=== PATIENT | female | born 1950 | race Caucasian/White ===

== ENCOUNTER 2019-07-23 11:44 | Observation (INO) ==
[2019-07-23 10:38] LABS: CREATININE 0.8 mg/dL (0.5-0.9)
[2019-07-23] MEDS ORDERED: EPINEPHRINE IM ONE (11:52)
--- NOTE | 2019-07-23 12:09 | Diag Imaging Result Doc PS360 ---
EXAM: CT ABD/PELVIS W/PO AND IV CON 07/23/2019 HISTORY: R19.00, , , , , TECHNIQUE: This exam was performed using automated exposure control, adjustment of mA or kV according to patient size, and/or use of iterative reconstruction technique. COMMENT: There are platelike opacities in the lingula and left lower lobe. There is also some apparent atelectasis over the hemidiaphragm on the right. There is an apparent cyst in the dome of the right lobe of the liver. The adrenal glands and spleen are not enlarged. The pancreas is unremarkable. There is fullness of both renal pelves. No evidence of stones is present. The aorta is not distended. There is no evidence of significant adenopathy. There is oral contrast throughout the colon. The small bowel is not distended. Pelvis: The appendix is normal in appearance. There is diverticulosis in the sigmoid colon without evidence of active diverticulitis. The urinary bladder is slightly distended. There has been hysterectomy. No free fluid is present. There is no evidence of significant adenopathy or masses. There are postsurgical changes in the lumbar spine. No acute bony abnormalities are demonstrated. IMPRESSION: Bibasilar atelectasis. No evidence of acute intra-abdominal disease. The possibility of mild urinary retention cannot be excluded. Electronically signed by Devante Egan 07/23/2019 12:07 PM
[2019-07-23 13:04] LABS: URINE SOURCE CATH
[2019-07-23 13:08] LABS: BILIRUBIN URINE NEGATIVE (NEGATIVE); BLOOD URINE TRACE (NEGATIVE); COLOR YELLOW; GLUCOSE URINE NEGATIVE (NEGATIVE); KETONE URINE NEGATIVE (NEGATIVE); LEUKOCYTES URINE LARGE (NEGATIVE); NITRITE URINE NEGATIVE (NEGATIVE); PH URINE 6.5; PROTEIN URINE NEGATIVE (NEGATIVE); SP GRAVITY URINE 1.022; TURBIDITY URINE HAZY (CLEAR); UR EPITHELIAL CELLS <10 /HPF (<10); URINE BACTERIA 4+ /HPF; URINE RBC <10 /HPF (<10); URINE WBC TNTC /HPF (<10); UROBILINOGEN URINE NORMAL (NORMAL)
[2019-07-23 13:23] LABS: UR AMPHETAMINES QUAL NONE DETECTED (NONE DETECT); UR BARBITUATES QUAL NONE DETECTED (NONE DETECT); UR BENZODIAZEPIN QUAL NONE DETECTED (NONE DETECT); UR CANNABINOIDS QUAL NONE DETECTED (NONE DETECT); UR COCAINE QUAL NONE DETECTED (NONE DETECT); UR METHADONE QUAL NONE DETECTED (NONE DETECT); UR METHAMPHETAMINE QUAL NONE DETECTED (NONE DETECT); UR OPIATES QUAL NONE DETECTED (NONE DETECT); UR OXYCODONE QUAL NONE DETECTED (NONE DETECT); UR PCP QUAL NONE DETECTED (NONE DETECT); UR PROPOXYPHENE QUAL NONE DETECTED (NONE DETECT); UR TCA QUAL NONE DETECTED (NONE DETECT)
--- NOTE | 2019-07-23 14:04 | EKG Report ---
Test Performed on : 07/23/2019 1:36:24 PM Test Reason : allergic reaction, ams Blood Pressure : / mmHG Vent. Rate : 087 BPM Atrial Rate : 087 BPM P-R Int : 142 ms QRS Dur : 084 ms QT Int : 408 ms P-R-T Axes : 038 000 030 degrees QTc Int : 490 ms Normal sinus rhythm. Nonspecific ST and T wave abnormality Abnormal ECG When compared with ECG of 21-MAR-2016 05:30, Vent. rate has increased BY [address] now depressed in Anterolateral leads Nonspecific T wave abnormality now evident in Inferior leads Nonspecific T wave abnormality now evident in Anterior leads QT has lengthened Unconfirmed Result
[2019-07-23 14:09] LABS: BASO# 0.02 X1000 (0.0-0.2); BASO% 0.2 % (0.0-0.8); EOS# 0.04 X1000 (0.0-0.7); EOS% 0.4 % (0.0-10.0); HEMATOCRIT 40.9 % (37.0-47.0); HEMOGLOBIN 13.2 g/dL (12.0-16.0); IMM GRAN# 0.01 X1000 (0.0-0.04); IMM GRAN% 0.1 % (0.0-0.5); LYMPH# 4.18 X1000 (1.2-3.4); LYMPH% 43.7 % (20.5-51.1); MCH 30.3 PG (27-31); MCHC 32.3 g/dL (33-37); MCV 93.8 FL (81-99); MONO# 0.26 X1000 (0.11-0.59); MONO% 2.7 % (1.7-9.3); MPV 9.9 FL (7.4-10.4); NEUT# 5.05 X1000 (1.4-6.5); NEUT% 52.9 % (42.2-75.2); PLT 295 X1000 (130-400); RBC 4.36 XMIL (4.2-5.4); RDW 13.8 % (11.5-14.5); WBC 9.56 X1000 (4.8-10.8)
[2019-07-23 15:29] LABS: AGAP 18; ALBUMIN 4.6 g/dL (3.5-5.0); ALKALINE PHOSPHATASE 82 U/L (32-104); BUN 12 mg/dL (8-22); CALCIUM 9.5 mg/dL (8.8-10.2); CHLORIDE 98 mmol/L (98-107); COSMO 285; CREATININE 0.9 mg/dL (0.5-0.9); ESTIMATED GFR > 60; GLUCOSE 164 mg/dL (70-104); GOT 20 U/L (10-30); GPT 14 U/L (10-36); POTASSIUM 2.8 mmol/L (3.5-5.1); SODIUM 141 mmol/L (136-145); TCO2 25 mmol/L (25-35); TOTAL PROTEIN 7.9 g/dL (6.3-8.3)
[2019-07-23] MEDS ORDERED: BENADRYL ONE (15:29)
[2019-07-23] MEDS ORDERED: SOLU-MEDROL ONE (15:30)
[2019-07-23] MEDS ORDERED: NS 1,000 ML IV ONE (16:53)
[2019-07-23] MEDS ORDERED: POTASSIUM CHLORIDE 40 MEQ in NS 1,000 ML IV ONE (16:54)
[2019-07-23] MEDS ORDERED: ROCEPHIN 1 GM in NS 50 ML IV ONE (17:00)
[2019-07-23] MEDS ORDERED: NS 250 ML ONE (17:20)
[2019-07-23] MEDS ORDERED: POTASSIUM CHLORIDE 20 MEQ/SWI 40 MEQ/200 ML IVPB ONE (17:22)
--- NOTE | 2019-07-23 17:48 | PROVIDER DOCUMENTATION ---
This chart was entered by Vania Booker Scribe, acting as scribe for Grady Dove MD. HPI-General Adult - General Stated Complaint: allergic reaction Time Seen by Provider: 07/23/19 11:44 Source: patient, family Unable to obtain history due to:: urgency Allergies/Adverse Reactions: Patient Allergies Allergy/AdvReac Type Severity Reaction Status Date / Time ciprofloxacin [From Cipro] Allergy Unknown Verified 07/23/19 13:59 ciprofloxacin HCl * Allergy Unknown Verified 07/23/19 13:59 [From Cipro] codeine Allergy Unknown Verified 07/23/19 13:59 Iodinated Contrast Media Allergy ANAPHYLAXIS Verified 07/23/19 13:59 [IV Dye] nitrofurantoin Allergy Unknown Verified 07/23/19 13:59 macrocrystalline * [From Macrodantin] Home Medications: Home Medication List Medication Instructions Recorded Confirmed Last Taken Type Docusate Sodium [Colace] 100 mg PO BID #60 capsule 03/21/16 07/23/19 07/22/19 Rx Gabapentin 1 cap PO BID 03/21/16 07/23/19 07/22/19 History Ibuprofen 1 tab PO Q6H PRN PRN 03/21/16 07/23/19 07/22/19 History LISINOpril [Prinivil] 1 tab PO DAILY 03/21/16 07/23/19 07/22/19 History Levothyroxine [Synthroid] 1 tab PO DAILY 03/21/16 07/23/19 07/22/19 History SIMVAstatin [Zocor] 1 tab PO DAILY 03/21/16 07/23/19 07/22/19 History - History of Present Illness -Gen Adult Nature of Presenting Problems: 68 yowf presents to the ed from CT. pt came in as a out pt to have CT ran and when pt was given IV contrast, pt quickly had redness and numbness to RUE. pt was unresponsive briefly. dr dove was called to CT where pt was lethargic b ut would wake to strong voice or pain. pt was given Solumedrol and Benadryl. pt is now in the er and sts she feels better. pt is sleepy but when awaken a/o x3 and can follow direction. pt is at bedside and sts 3 months prior pt was admitted at [facility] due to a similar reaction to medication. Location of Pain/Injury: reports: upper extremity (rt arm) Pain Radiation: reports: no radiation Quality of Pain: reports: none Severity: reports: moderate Onset/Duration: reports: just prior to arrival Timing: reports: improving Context/Activities at Onset: reports: other (was getting a CT) Modifying Factors: improves with: other (Benadryl and Solumedrol) Associated Symptoms: reports: arm pain, other (became unresponsive). denies: back/neck pain, chest pain, dizziness, fever/chills, nausea, shortness of breath, vomiting Similar Symptoms Previously?: Yes Recently seen or treated by another doctor?: No Review of Systems - Adult - REVIEW OF SYSTEMS - ADULT Constitutional: denies: chills, fever Eyes: reports: no symptoms reported Ears, Nose, Mouth & Throat: reports: no symptoms reported Cardiovascular: denies: chest pain, palpitations Respiratory: denies: cough, shortness of breath, wheezing Gastrointestinal: denies: diarrhea, nausea, vomiting Genitourinary: reports: no symptoms reported Musculoskeletal: reports: see HPI, other (RUE) Integumentary: reports: no symptoms reported Neurological: reports: no symptoms reported Psychiatric: reports: no symptoms reported Endocrine: reports: no symptoms reported Hematologic/Lymphatic: reports: no symptoms reported Allergic/Immunologic: reports: see HPI, allergic reactions All Other Systems: Reviewed and Negative Past History - Adult - PAST MEDICAL HISTORY-ADULT Review of Records: reports: Old Records Reviewed, Nursing Assessment Review, Medications Reviewed, Social history reviewed & non-contributory. Major Childhood Illnesses: reports: denies history Cardiovascular: reports: HTN Respiratory: reports: denies history Gastrointestinal: reports: denies history Obstetrical/Gynecological: reports: denies history Genitourinary: reports: denies history Musculoskeletal: reports: denies history Neurological: reports: denies history Psychiatric: reports: denies history Endocrine/Immune: reports: thyroid disorder Other Conditions: reports: denies history - PRIOR SURGERIES/PROCEDURES Surgical/Procedure History: reports: cholecystectomy - IMMUNIZATION STATUS Childhood Immunizations: See Nurse Assessment Flu Vaccine: See Nurse Assessment - FAMILY HISTORY Family History: reviewed, not pertinent - SOCIAL HISTORY Smoking: denies Substance Use: denies Living Situation: family Physical Exam-General - PHYSICAL EXAM-ADULT Initial Vital Signs Reviewed: Yes - CONSTITUTIONAL General Appearance: obese, lethargic, slow to respond - EYES Eyes: PERRL/EOMI, pink conjunctivae - HEAD, EARS, NOSE, MOUTH & THROAT HENMT: moist mucous membranes - NECK Neck: non-tender, full range of motion, supple, normal inspection - RESPIRATORY Respiratory: chest non-tender, lungs clear, normal breath sounds - CARDIOVASCULAR Cardiovascular: normal peripheral pulses, regular rate, rhythm - CHEST (BREASTS) Chest/Breast: deferred - GASTROINTESTINAL (ABDOMEN) Abdominal Exam: normal bowel sounds, non tender, soft - GENITOURINARY Female Genitalia/Pelvic Exam: deferred Rectal Exam: deferred Hemoccult Exam: deferred - MUSCULOSKELETAL Back Exam: no CVA tenderness, no vertebral tenderness Extremity: normal capillary refill, pelvis stable, tenderness (rt arm pain) - SKIN Integumentary: normal color, normal turgor, warm/dry Progress - PLAN OF CARE/RESULTS Progress/Plan/Lab Results: Laboratory Results - last 24 hr 07/23/19 10:19 BUN 13 Creatinine 0.8 Orders Category Date Time Status CT ABD/PELVIS W/PO AND IV CON [CT] Routine Exams 07/23/19 09:46 Ordered BUN [CHEM] Stat Lab 07/23/19 10:19 Completed CREATININE [CHEM] Stat Lab 07/23/19 10:19 Completed Findings discussed with pt at length. It was discussed that she most likely had an allergic reaction to IV contrast meds. It was noted during evaluation in the ER that her IV might have been placed in an artery instead of vein that might have had a role in her reaction. Findings were discussed with Dr Solis and Hospitalist. Dr Zamora denied any other specific treatment at this time and noted pt could have a CT head if any problems persisted. At recheck Pt denies any further problems and states that she feels back to normal. She agrees with plan to admit and denies any further concerns at this time. Result Diagrams: 07/23/19 13:50 07/23/19 13:50 - REASSESSMENT Reassessment #1 Time Reassessed: 16:23 Status: improving (pt feels much better and c/o only of arm pain. dr dove is at bedside speaking with pt about poc) - EKG 1 Time of EKG reading by physician:: 13:36 EKG Read and Signed by:: Grady C. Derrell EKG Interpretation (*Must complete 3 of following elements*): Abnormal Rate: 87 Rhythm: nsr Crescent: normal QRS: normal LA Interval: normal Comments: nonspecific ST and T wave abnomality - CT/MRI 1 CT Study: Abdomen, Pelvis Impression: See EMR Report (EXAM: CT ABD/PELVIS W/PO AND IV CON 07/23/2019 HISTORY: R19.00, , , , , TECHNIQUE: This exam was performed using automated exposure control, adjustment of mA or kV according to patient size, and/or use of iterative reconstruction technique. COMMENT: There are platelike opacities in the lingula and left lower lobe. There is also some apparent atelectasis over the hemidiaphragm on the right. There is an apparent cyst in the dome of the right lobe of the liver. The adrenal glands and spleen are not enlarged. The pancreas is unremarkable. There is fullness of both renal pelves. No evidence of stones is present. The aorta is not distended. There is no evidence of significant adenopathy. There is oral contrast throughout the colon. The small bowel is not distended. Pelvis: The appendix is normal in appearance. There is diverticulosis in the sigmoid colon without evidence of active diverticulitis. The urinary bladder is slightly distended. There has been hysterectomy. No free fluid is present. There is no evidence of significant adenopathy or masses. There are postsurgical changes in the lumbar spine. No acute bony abnormalities are demonstrated. IMPRESSION: Bibasilar atelectasis. No evidence of acute intra-abdominal disease. The possibility of mild urinary retention cannot be excluded. Electronically signed by Devante Egan 07/23/2019 12:07 PM 07/23/19 1207 Interpreting Physician: Devante Egan MD Dictated Date/Time: 07/23/19 1204 cc: Riaz Booker MD; Galo Seth MD) - CONSULTS/PCP/HOSPITALIST Notification #1 *Consult/PCP/Hospitalist*: dr booker sx Time Discussed: 16:49 Reason/Comments: phone consult #2 Consult: Tri Ricks for Hospitalist Time Discussed: 17:47 Consult Disposition: Will see in ED, Admit Departure - Departure Date of Disposition Decision: 07/23/19 Time of Disposition Decision: 16:22 DIAGNOSIS: Hypokalemia, AMS (altered mental status) Allergic reaction Qualifiers: Encounter type: initial encounter Qualified Code(s): T78.40XA - Allergy, unspecified, initial encounter UTI (urinary tract infection) Qualifiers: Urinary tract infection type: site unspecified Hematuria presence: without hematuria Qualified Code(s): N39.0 - Urinary tract infection, site not specified Disposition: ADMITTED INPATIENT 09 Certified Medical Emergency: Emergent Condition: Fair Additional Instructions: ED Follow Up Instructions: You have been treated by a care provider in the Emergency Department. These instructions are being provided to you so you can have an understanding of how to care for yourself upon discharge. Upon discharge from the Emergency Department, you are responsible for making arrangements for follow-up care by a physician of your choice. Take all prescribed medications as directed. Return to the Emergency Department immediately for any new or worsening symptoms. You may call the Physician Referral phone number at [phone] to obtain a list of Physicians who are taking new patients. Referrals and Follow-Ups: Galo Seth MD [Primary Care Provider] - - Critical Care Note This patient required my direct & personal management of CC.: No Attestation - Physician/ KOMAL Attestation Patient care was provided by Advanced Practice Provider:: No The physician spent face to face time with patient:: Yes Advanced Practice Provider documentation review:: Supervising physician onsite and consulted in the evaluation and care of this patient. The physician did have a face to face encounter with the patient. This chart was documented by the indicated scribe, (Vania Booker Scribe) and accurately reflects the services I performed and decisions made by me, Grady Dove MD, as attested by the provider's signature.
[2019-07-23] MEDS ORDERED: ROCEPHIN 1 GM in NS 50 ML IV SCH (19:00)
--- NOTE | 2019-07-23 19:44 | HISTORY AND PHYSICAL ---
CHIEF COMPLAINT: Allergic reaction to IV contrast. HISTORY OF PRESENT ILLNESS: This is a 68-year-old female with a history of hypertension, thyroid disease and problems as a child what sounds like ureteral stricture, status post interventions as a child. She presented to the emergency room from CT scan after having what was felt to be an allergic reaction to IV contrast. According to the telecommunications switch technician, IV contrast was given. The patient developed redness, numbness to her right upper extremity along with redness and welts across her shoulder and upper chest area. The patient stated that when the contrast was being pushed, she had unbearable pain. She stated that her arm fifi up and that when she looked over, her hand like a claw and she was unable to straighten it out. Dr. Dove, the emergency room physician, was called to CT, found the patient lethargic. She did wake to a sternal rub. At the time of my exam the patient is awake, alert, oriented with no complaints. PAST MEDICAL HISTORY: Hypertension, chronic pain syndrome, high cholesterol, ureteral stricture, status post interventions as a child as well as April 2019. PAST SURGICAL HISTORY: Gallbladder surgery, carpal tunnel surgery, foot operation, multiple surgeries on her ureter, according to the family as a child. She had repair of a ureteral stricture in April 2019 with a stent was placed for 6 weeks. FAMILY HISTORY: Positive for colon cancer, stomach cancer and lung cancer as well as hypertension. SOCIAL HISTORY: She denies any tobacco or illicit drug use. She does occasionally drink alcohol on a social basis. She is , lives with her . ALLERGIES: Cipro which with unknown reaction. Codeine with unknown reaction and Macrodantin with unknown reaction. Now it is assumed that she has anaphylaxis with IV contrast. HOME MEDICATIONS: A list will be obtained by the nursing staff and once verified, review and restart as appropriate. REVIEW OF SYSTEMS: Discussed with the patient with pertinent positives stated in the HPI. She denied any syncope, dizziness, chest pain, palpitations, any shortness of breath, cough, fever, chills, any night sweats, any nausea, vomiting, diarrhea, constipation, black or bloody vomitus or stools any hematuria, dysuria, frequency, urgency. PHYSICAL EXAMINATION: GENERAL: This is a 68-year-old female who is lying on the stretcher in the emergency room in no distress. VITAL SIGNS: Blood pressure is 150/83 with a heart rate of 75, respirations are 16, temperature is 97.7 degrees oral with O2 saturations 100% on 2 L nasal cannula. HEENT: Head is normocephalic, atraumatic. Mucous membranes are moist. NECK: Supple with trachea midline. CARDIOVASCULAR: Regular rate and rhythm. S1 and S2 appreciated. She denies any calf tenderness. Peripheral pulses are palpable bilateral. No murmur was noted. PULMONARY: Breath sounds are clear. No increased work of breathing noted. Chest rises and falls symmetric with respiration. Chest wall is nontender to palpation. GASTROINTESTINAL: Abdomen is soft, nontender, nondistended with bowel sounds in all 4 quadrants. NEUROLOGIC: She is alert and oriented x3. SKIN: Warm and dry. Neurovascular checks to right upper extremity, cap refill is less than 3 seconds. Blanching is less than 3 seconds on all fingers of her right hand. Brachial, radial, ulnar pulses are palpable. Arm is warm. She has equal color and warmth compared to the left arm. She denies any numbness, tingling sensation or pain. LABS: WBC is 9.5 with hemoglobin 13.2, hematocrit 40.9, platelets 295,000. Sodium 141, potassium 2.8, BUN 12, creatinine 0.9 with a glucose of 164. Urinalysis reveals too numerous to count white blood cells with large leukocytes and 4+ bacteria. Urine drug screen reveals none detected. Urine culture is pending. CT of the abdomen and pelvis revealed bibasilar atelectasis. No evidence of acute intra-abdominal disease. The possibility of mild urinary retention cannot be excluded. ASSESSMENT AND PLAN: 1. Allergic reaction to IV contrast. Pepcid IV q12h, Benadryl 2. Altered mental status, resolved. 3. Hypokalemia. We will replete and trend labs. 4. Urinary tract infection. Urine culture is pending. Rocephin and azithromycin further antibiotics to be culture driven. 5. Bibasilar atelectasis. Rocephin and azithromycin. 6. Allergic reaction to IV contrast. 7. Plan was discussed with Dr. Correa. Further treatments pending hospital course. Dictated by BAIRON Valdes for Levi Correa MD cc: BAIRON Valdesam, MD [facility]
[2019-07-23] MEDS ORDERED: NEURONTIN PO SCH (21:00)
[2019-07-23] MEDS ORDERED: MOTRIN PO PRN (23:02)
[2019-07-23] MEDS: COLACE PO SCH (23:13)
[2019-07-23] MEDS: ZITHROMAX PO SCH (23:13)
[2019-07-24 01:13] LABS: INR 0.95; PROTIME 13.1 Seconds (11.0-16.0); PTT 30.4 Seconds (22.3-41.8)
[2019-07-24 05:38] LABS: BASO# 0.01 X1000 (0.0-0.2); BASO% 0.1 % (0.0-0.8); HEMATOCRIT 33.6 % (37.0-47.0); HEMOGLOBIN 10.9 g/dL (12.0-16.0); IMM GRAN# 0.03 X1000 (0.0-0.04); IMM GRAN% 0.3 % (0.0-0.5); LYMPH# 1.55 X1000 (1.2-3.4); LYMPH% 15.5 % (20.5-51.1); MCH 30.5 PG (27-31); MCHC 32.4 g/dL (33-37); MCV 94.1 FL (81-99); MONO# 0.53 X1000 (0.11-0.59); MONO% 5.3 % (1.7-9.3); MPV 9.9 FL (7.4-10.4); NEUT% 78.8 % (42.2-75.2); PLT 251 X1000 (130-400); RBC 3.57 XMIL (4.2-5.4); RDW 13.5 % (11.5-14.5); WBC 10.02 X1000 (4.8-10.8)
[2019-07-24 05:49] LABS: AGAP 14; BUN 16 mg/dL (8-22); CALCIUM 9.1 mg/dL (8.8-10.2); CHLORIDE 99 mmol/L (98-107); COSMO 280; CREATININE 0.8 mg/dL (0.5-0.9); ESTIMATED GFR > 60; GLUCOSE 159 mg/dL (70-104); POTASSIUM 3.1 mmol/L (3.5-5.1); SODIUM 138 mmol/L (136-145); TCO2 25 mmol/L (25-35)
[2019-07-24] MEDS: SYNTHROID PO SCH (06:06)
--- NOTE | 2019-07-24 08:48 | Diag Imaging Result Doc PS360 ---
EXAM: CHEST-1 VIEW - 07/23/2019 HISTORY: NEWS BUNDLE TECHNIQUE: One view chest COMPARISON: None. FINDINGS: Heart size is normal. There is mild tortuosity of the thoracic aorta. There is subsegmental atelectasis at the lung bases. The lungs otherwise appear clear. There is no pleural effusion or pneumothorax identified. IMPRESSION: Mild basilar atelectasis. No other evidence of acute disease. Electronically signed by Jeremy Sandhu 07/24/2019 8:45 AM
[2019-07-24] MEDS ORDERED: KLOR-CON PO ONE (08:57)
[2019-07-24] MEDS ORDERED: PRINIVIL PO SCH (09:00)
[2019-07-24] MEDS: COLACE PO SCH ×2 (10:01→21:00)
[2019-07-24] MEDS: ZITHROMAX PO SCH (10:01)
[2019-07-24] MEDS: HYDROCHLOROTHIAZIDE PO SCH ×2 (10:01→21:07)
[2019-07-24] MEDS: PRINIVIL PO SCH ×2 (10:01→21:07)
[2019-07-24] MEDS: PROTONIX PO SCH ×2 (10:01→21:00)
[2019-07-24] MEDS ORDERED: ROCEPHIN 1 GM in NS 50 ML IV SCH (18:00)
[2019-07-24] MEDS ORDERED: ZOCOR PO SCH (21:00)
--- NOTE | 2019-07-25 00:43 | PROGRESS NOTE ---
DATE: 07/24/2019 SUBJECTIVE: Patient notes overall she is doing better. Denies any fevers or chills. PHYSICAL EXAMINATION: Vital Signs: Temperature 97.6 degrees, pulse 70, respiratory 22, BP 148/54, saturating 98% on 1 L. General: Patient is awake, pleasant, in no current respiratory distress. HEENT: Normocephalic. Neck: Supple. Cardiovascular: Regular rate. Chest: Clear. Abdomen: Soft. Extremities: Moves all extremities. ASSESSMENT: 1. Gram-negative yves urinary tract infection. 2. Altered mental status, appears resolved. 3. Hyperkalemia, improved. PLAN: We are going to continue patient in the hospital. Continue antibiotics and we will follow. Currently, she is feeling better. Hopefully, possibly can be discharged home today versus tomorrow. cc: Levi Correa MD
[2019-07-25 05:28] VITALS: BP 109/58
[2019-07-25] MEDS ORDERED: PROTONIX PO SCH (07:00)
[2019-07-25] MEDS: ZITHROMAX PO SCH (08:27)
[2019-07-25] MEDS: HYDROCHLOROTHIAZIDE PO SCH (08:27)
[2019-07-25] MEDS: PRINIVIL PO SCH (08:27)
[2019-07-25] MEDS: SYNTHROID PO SCH (08:27)
[2019-07-25] MEDS: COLACE PO SCH (08:27)
[2019-07-25] MEDS ORDERED: LEVAQUIN PO SCH (09:00)
--- NOTE | 2019-07-26 04:10 | DISCHARGE SUMMARY ---
ADMISSION DATE: 07/23/2019 DISCHARGE DATE: 07/25/2019 DIAGNOSES: 1. Presumed allergic reaction to intravenous contrast. 2. Altered mental status, resolved. 3. Hypokalemia. 4. Klebsiella pneumoniae urinary tract infection. 5. Bibasilar atelectasis. DIAGNOSTICS: 1. CT of the abdomen and pelvis with p.o. and IV contrast, bibasilar atelectasis, no evidence of acute intra-abdominal disease. 2. Chest x-ray revealed mild basilar atelectasis, no other evidence of disease. MICROBIOLOGY: 1. Blood cultures x2 are pending. 2. Urine culture revealed Klebsiella pneumoniae. HOSPITAL COURSE: Ms Morillo presented to the emergency room after having an allergic reaction just after receiving IV contrast while in CT scan. A critical assistance call was made. The emergency room physician and staff answered the call, stated that when they got to the CT room the patient was lethargic. She did wake to sternal rub. When she woke, the patient told me that her arm hurt, "did hurt worse than I have ever hurt my life." She stated that her arm fifi up, her hand turned again and she stated that when she looked that her arm all she saw was claw. The emergency room physician stated that she had red welts across her chest, around her right shoulder and up into her neck and face. These have resolved. She has had no further complaints. Electrolytes were followed and repleted as appropriate. She was found to have a Klebsiella pneumoniae UTI as well as bibasilar atelectasis. She initially received Rocephin and azithromycin and was discharged on Omnicef. DISCHARGE VITAL SIGNS: Blood pressure is 109/58, heart rate of 66, respirations 18, temperature is 97.9 degrees with room air saturations 97%. DISCHARGE PHYSICAL EXAMINATION: General: This is a 68-year-old female who is sitting up in the chair in no distress. Eyes: Pupils equal, round, react to light. EOMs are intact. Sclerae anicteric. HENT: Head is normocephalic, atraumatic. Mucous membranes are moist. Neck: Supple with trachea midline. Cardiovascular: Regular rate and rhythm. S1 and S2 appreciated. She has no lower extremity edema. She denies calf tenderness with peripheral pulses palpable x4 extremities. Pulmonary: Breath sounds are clear. No increased work of breathing noted. Chest rises and falls symmetric respiration. Gastrointestinal: Abdomen is soft, nontender, nondistended with bowel sounds in all 4 quadrants. Neurologic: She is alert and oriented x3. Skin: Warm and dry. DISCHARGE MEDICATIONS: 1. Zocor 40 mg p.o. at bedtime. 2. Protonix 40 mg p.o. b.i.d. 3. Lisinopril/hydrochlorothiazide 20/12.5 one p.o. b.i.d. 4. Levothyroxine 75 mcg daily. 5. Motrin 600 mg p.o. every 6 hours. 6. Colace 100 mg p.o. b.i.d. 7. Omnicef 300 mg p.o. b.i.d. x5 days FOLLOWUP: 1. Dr. Seth, her primary care provider. Needs to call the office Sunday to schedule an appointment in the next [address] Grant as he instructed her while in the emergency room. 3. She is being discharged home in stable condition with family members. TIME: This is a greater than 30 minute discharge. She has been instructed to return to the emergency room for any syncope, dizziness, chest pain, palpitations, any recurring hives, any shortness of breath, wheezing, nausea, vomiting, diarrhea, constipation, black or bloody vomitus or stools or for any questions or concerns she may have. Dictated by BAIRON Valdes for Levi Correa MD cc: BAIRON Valdes MD
--- NOTE | 2019-07-26 05:21 | DISCHARGE SUMMARY ---
ADMISSION DATE: 07/23/2019 DISCHARGE DATE: 07/25/2019 ADDENDUM: Patient seen and examined by myself. Full note dictated and discussed with nurse practitioner. Patient had a reaction to IV contrast as documented earlier. Currently that has resolved. She is awake, alert. She is having no other issues. Did have some hyperkalemia that has resolved and has a Klebsiella urinary tract infection. On discharge, patient is awake, alert. She is in no distress and therefore we will be discharging her home. Patient has no new complaints. cc: Levi Correa MD
== END 2019-07-25 12:05 | disposition home or self-care (01) ==
LOC: P.MEDSURG 11:44 → P.ED 11:44
PROVIDERS: ATTEND Family Medicine